=== PATIENT | male | born 1975 | race Caucasian/White ===

== ENCOUNTER 2017-12-01 05:33 | Inpatient (IN) | payer MEDICARE ==
[~2017-12-01] VITALS: Ht 170.2 cm; Wt 88.5 kg
[2017-12-01] MEDS ORDERED: ACETAMINOPHEN 1000 MG/100 ML IV STA (05:41)
[2017-12-01] MEDS ORDERED: SODIUM CHLORIDE 0.9% 1000ML 1,000 ML IV ONE (05:45)
[2017-12-01] MEDS ORDERED: CEFTRIAXONE SOD 1 GM VIAL IV ONE (05:45)
[2017-12-01] MEDS ORDERED: ALBUTEROL SULF 0.083% NEB SOLN 3 ML NEB NEB STA (05:55)
[2017-12-01] MEDS ORDERED: IPRATROPIUM BROMIDE 0.02% 2.5 ML NEB NEB ONE (06:00)
[2017-12-01 06:06] LABS: BASOPHILS # (AUTO) 0.1 (0.0-0.1); BASOPHILS % 0.4 % (0.0-1.0); EOSINOPHILS % 0.1 % (0.0-6.0); HEMATOCRIT 38.6 % (38.2-49.6); LYMPHOCYTES # (AUTO) 0.6 (1.0-3.2); LYMPHOCYTES % 3.2 % (18.0-39.1); MEAN CORPUSCULAR HEMOGLOBIN 30.4 pg (28-32); MEAN CORPUSCULAR HGB CONC 36.3 g/dL (31-35); MEAN CORPUSCULAR VOLUME 83.7 fL (81-99); MONOCYTES # (AUTO) 1.5 (0.2-0.8); NEUTROPHILS # (AUTO) 16.4 (2.1-6.9); NEUTROPHILS % 87.6 % (38.7-80.0); PLATELET COUNT 265 x10e3/uL (140-360); RED BLOOD COUNT 4.61 x10e6/uL (4.3-5.7); RED CELL DISTRIBUTION WIDTH 12.3 % (11.7-14.4)
[2017-12-01 06:17] LABS: ALANINE AMINOTRANSFERASE 80 IU/L (0-55); ALBUMIN 2.5 g/dL (3.5-5.0); ALBUMIN/GLOBULIN RATIO 0.5 (0.8-2.0); ALKALINE PHOSPHATASE 177 IU/L (40-150); ANION GAP 16.4 mmol/L (8-16); BLOOD UREA NITROGEN 13 mg/dL (7-26); BUN/CREATININE RATIO 13 (6-25); CALCIUM 9.9 mg/dL (8.4-10.2); CARBON DIOXIDE 24 mmol/L (22-29); CHLORIDE 93 mmol/L (98-107); CREATINE KINASE 22 IU/L (30-200); CREATININE, SERUM 0.98 mg/dL (0.72-1.25); EST GLOMERULAR FILTRATION RATE > 60 ML/MIN (60-); GLUCOSE 165 mg/dL (74-118); POTASSIUM 3.4 mmol/L (3.5-5.1); SODIUM 130 mmol/L (136-145)
[2017-12-01 06:30] LABS: INFLUENZAE A&B ANTIGEN (RAPID) NEGATIVE (NEGATIVE); STREPTOCOCCUS GRP A ANTIGEN POSITIVE (NEGATIVE)
--- NOTE | 2017-12-01 06:46 | Diagnostic Imaging Report ---
EXAMINATION: CHEST SINGLE (PORTABLE) INDICATION: Cough, fever COMPARISON: None FINDINGS: TUBES and LINES: None. LUNGS: Lungs are well inflated. Left lower lobe airspace opacity. PLEURA: Trace of left pleural effusion. HEART AND MEDIASTINUM: The cardiomediastinal silhouette is unremarkable. BONES AND SOFT TISSUES: No acute osseous lesion. Soft tissues are unremarkable. UPPER ABDOMEN: No free air under the diaphragm. IMPRESSION: Findings are compatible with left lower lobe pneumonia with parapneumonic effusion Signed by: Dr. Farhad Jeffery M.D. on 12/01/2017 6:43 AM
--- NOTE | 2017-12-01 06:50 | Diagnostic Imaging Report ---
EXAM: CT Chest WITHOUT contrast 12/01/2017 6:17 AM INDICATION: Cough. COMPARISON: None TECHNIQUE: Chest was scanned utilizing a multidetector helical scanner from the lung apex through the level of the adrenal glands without administration of IV contrast. Absence of intravenous contrast decreases sensitivity for detection of lymphadenopathy and vascular pathology. Coronal and sagittal reformations were obtained. Routine protocol was performed. IV CONTRAST: None RADIATION DOSE: Total DLP: 504 mGy*cm Estimated effective dose: (DLP x 0.014 x size factor) mSv COMPLICATIONS: None FINDINGS: LINES/ TUBES: None. LUNGS AND AIRWAYS: Near complete opacification of the left lower lobe with confluent airspace opacity and air bronchogram. Airways are normal. PLEURA: Trace of left pleural effusion along the major fissure HEART AND MEDIASTINUM: The thyroid gland is normal. No mediastinal, hilar or axillary lymphadenopathy. The heart is normal in size.. There is no pericardial effusion. UPPER ABDOMEN: Limited non-contrast views of the upper abdomen show no abnormality. BONES: The visualized bony thorax is within normal limits. SOFT TISSUES: Unremarkable. IMPRESSION: Findings are compatible with left lower lobe pneumonia and trace of left parapneumonic effusion along the major fissure Signed by: Dr. Farhad Jeffery M.D. on 12/01/2017 6:47 AM
[2017-12-01] MEDS ORDERED: AZITHROMYCIN 500MG/SOD CHL 0.9% 250ML BAG IV SCH (07:00)
[2017-12-01] MEDS ORDERED: ACETAMINOPHEN 325 MG TAB PO PRN (07:00)
[2017-12-01] MEDS ORDERED: CEFTRIAXONE SOD 1 GM VIAL IV SCH (07:30)
[2017-12-01] MEDS: SODIUM CHLORIDE 0.9% 1000ML 1,000 ML IV SCH ×3 (07:46→23:41)
[2017-12-01] MEDS: IPRATROPIUM BROMIDE 0.02% 2.5 ML NEB NEB SCH ×4 (08:00→23:30)
[2017-12-01] MEDS: ALBUTEROL SULF 0.083% NEB SOLN 3 ML NEB NEB SCH ×5 (08:00→23:30)
[2017-12-01] MEDS: AZITHROMYCIN 500MG/NS 250 ML 250 ML IV SCH (08:30)
[2017-12-01 09:58] LABS: CLARITY,URINE SL CLOUDY (CLEAR); COLOR,URINE ORANGE (YELLOW); PROTEIN,URINE DIPSTICK TRACE (NEGATIVE)
[2017-12-01 09:59] LABS: BILIRUBIN,URINE NEGATIVE (NEGATIVE); KETONES,URINE NEGATIVE (NEGATIVE); LEUKOCYTE ESTERASE ,URINE NEGATIVE (NEGATIVE); NITRITE,URINE NEGATIVE (NEGATIVE); URINE UROBILINOGEN 0.2 mg/dL (0.2 - 1)
[2017-12-01 10:21] LABS: EPITHELIAL CELLS,URINE FEW /LPF
[2017-12-01 12:00] VITALS: BP 102/56
[2017-12-01 15:54] LABS: CREATINE KINASE 21 IU/L (30-200)
[2017-12-01 16:00] VITALS: BP 115/65
[2017-12-01 20:00] VITALS: BP 129/66
[2017-12-01] MEDS ORDERED: BENZONATATE 100 MG CAP PO PRN (20:00)
[2017-12-01] MEDS ORDERED: GUAIFENESIN 200 MG/10 ML UDC PO PRN (20:00)
[2017-12-01 23:38] LABS: CREATINE KINASE 21 IU/L (30-200)
[2017-12-02] VITALS (7 sets, daily range): BP systolic 106–137; BP diastolic 67–83
[2017-12-02] MEDS: ALBUTEROL SULF 0.083% NEB SOLN 3 ML NEB NEB SCH ×5 (03:00→19:20)
[2017-12-02 06:12] LABS: ALANINE AMINOTRANSFERASE 66 IU/L (0-55); ALBUMIN 2.2 g/dL (3.5-5.0); ALBUMIN/GLOBULIN RATIO 0.6 (0.8-2.0); ALKALINE PHOSPHATASE 146 IU/L (40-150); ANION GAP 15.4 mmol/L (8-16); BLOOD UREA NITROGEN 15 mg/dL (7-26); BUN/CREATININE RATIO 19 (6-25); CALCIUM 8.9 mg/dL (8.4-10.2); CARBON DIOXIDE 22 mmol/L (22-29); CHLORIDE 103 mmol/L (98-107); CREATININE, SERUM 0.78 mg/dL (0.72-1.25); EST GLOMERULAR FILTRATION RATE > 60 ML/MIN (60-); GLUCOSE 135 mg/dL (74-118); POTASSIUM 3.4 mmol/L (3.5-5.1); SODIUM 137 mmol/L (136-145)
[2017-12-02 06:40] LABS: BASOPHILS % 0.3 % (0.0-1.0); EOSINOPHILS # (AUTO) 0.3 (0.0-0.4); EOSINOPHILS % 3.3 % (0.0-6.0); HEMATOCRIT 33.9 % (38.2-49.6); HEMOGLOBIN 12.1 g/dL (14.0-18.0); LYMPHOCYTES # (AUTO) 1.1 (1.0-3.2); LYMPHOCYTES % 14.5 % (18.0-39.1); MEAN CORPUSCULAR HEMOGLOBIN 30.3 pg (28-32); MEAN CORPUSCULAR HGB CONC 35.7 g/dL (31-35); MONOCYTES # (AUTO) 1.1 (0.2-0.8); MONOCYTES % 14.4 % (4.4-11.3); NEUTROPHILS # (AUTO) 5.1 (2.1-6.9); NEUTROPHILS % 66.2 % (38.7-80.0); PLATELET COUNT 263 x10e3/uL (140-360); RED BLOOD COUNT 3.99 x10e6/uL (4.3-5.7); RED CELL DISTRIBUTION WIDTH 12.7 % (11.7-14.4)
[2017-12-02] MEDS: SODIUM CHLORIDE 0.9% 1000ML 1,000 ML IV SCH ×3 (06:41→22:05)
[2017-12-02] MEDS: IPRATROPIUM BROMIDE 0.02% 2.5 ML NEB NEB SCH ×3 (07:40→19:20)
[2017-12-02] MEDS: AZITHROMYCIN 500MG/NS 250 ML 250 ML IV SCH (08:30)
[2017-12-02] MEDS: CEFTRIAXONE SOD 1 GM VIAL IV SCH (10:02)
[2017-12-03] VITALS (7 sets, daily range): BP systolic 114–133; BP diastolic 63–86
[2017-12-03] MEDS: IPRATROPIUM BROMIDE 0.02% 2.5 ML NEB NEB SCH ×3 (00:30→19:15)
[2017-12-03] MEDS: ALBUTEROL SULF 0.083% NEB SOLN 3 ML NEB NEB SCH ×5 (00:30→19:15)
[2017-12-03 05:41] LABS: BASOPHILS % 0.6 % (0.0-1.0); EOSINOPHILS # (AUTO) 0.3 (0.0-0.4); EOSINOPHILS % 4.9 % (0.0-6.0); HEMATOCRIT 32.7 % (38.2-49.6); HEMOGLOBIN 11.3 g/dL (14.0-18.0); LYMPHOCYTES # (AUTO) 1.7 (1.0-3.2); LYMPHOCYTES % 25.7 % (18.0-39.1); MEAN CORPUSCULAR HEMOGLOBIN 30.1 pg (28-32); MEAN CORPUSCULAR HGB CONC 34.6 g/dL (31-35); MEAN CORPUSCULAR VOLUME 87.2 fL (81-99); MONOCYTES # (AUTO) 0.8 (0.2-0.8); MONOCYTES % 12.5 % (4.4-11.3); NEUTROPHILS # (AUTO) 3.6 (2.1-6.9); NEUTROPHILS % 54.9 % (38.7-80.0); PLATELET COUNT 337 x10e3/uL (140-360); RED BLOOD COUNT 3.75 x10e6/uL (4.3-5.7); RED CELL DISTRIBUTION WIDTH 13.3 % (11.7-14.4)
[2017-12-03 05:57] LABS: BLOOD UREA NITROGEN 16 mg/dL (7-26); BUN/CREATININE RATIO 20 (6-25); CARBON DIOXIDE 21 mmol/L (22-29); CHLORIDE 107 mmol/L (98-107); CREATININE, SERUM 0.82 mg/dL (0.72-1.25); EST GLOMERULAR FILTRATION RATE > 60 ML/MIN (60-); GLUCOSE 120 mg/dL (74-118); SODIUM 138 mmol/L (136-145)
[2017-12-03] MEDS: SODIUM CHLORIDE 0.9% 1000ML 1,000 ML IV SCH ×3 (06:41→23:50)
[2017-12-03] MEDS: AZITHROMYCIN 500MG/NS 250 ML 250 ML IV SCH (09:53)
[2017-12-03] MEDS: CEFTRIAXONE SOD 1 GM VIAL IV SCH (09:53)
[2017-12-04] VITALS (7 sets, daily range): BP systolic 121–150; BP diastolic 65–89
[2017-12-04] MEDS: ALBUTEROL SULF 0.083% NEB SOLN 3 ML NEB NEB SCH ×6 (01:10→14:15)
[2017-12-04] MEDS: IPRATROPIUM BROMIDE 0.02% 2.5 ML NEB NEB SCH ×4 (07:15→19:00)
--- NOTE | 2017-12-04 08:28 | Diagnostic Imaging Report ---
EXAMINATION: CHEST 2 VIEWS INDICATION: \S\PNEUMONIA; COUGH \[id number] \S\[id number] COMPARISON: Chest radiograph and CT 12/01/2017 FINDINGS: PA and lateral views TUBES and LINES: None. LUNGS: Lungs are well inflated. Stable left lower lobe pneumonia. Right lung is clear. PLEURA: Trace left pleural effusion. No right pleural effusion. No pneumothorax. HEART AND MEDIASTINUM: The cardiomediastinal silhouette is unremarkable. BONES AND SOFT TISSUES: No acute osseous lesion. Soft tissues are unremarkable. UPPER ABDOMEN: No free air under the diaphragm. IMPRESSION: Stable left lower lobe consolidation compatible with pneumonia. Signed by: DR. Wes Ramos MD on 12/04/2017 8:24 AM
[2017-12-04] MEDS: SODIUM CHLORIDE 0.9% 1000ML 1,000 ML IV SCH (08:31)
[2017-12-04] MEDS: AZITHROMYCIN 500MG/NS 250 ML 250 ML IV SCH (08:31)
[2017-12-04] MEDS: CEFTRIAXONE SOD 1 GM VIAL IV SCH (08:31)
[2017-12-05] VITALS: BP 134/83
--- NOTE | 2017-12-05 00:30 | Discharge Summary ---
STEPH BURROUGHS (00:01) CHRISTOFER FERNANDEZ MD Job#: [id number] [facility]OE[facility]
[2017-12-05] MEDS: IPRATROPIUM BROMIDE 0.02% 2.5 ML NEB NEB SCH ×2 (01:00→08:00)
[2017-12-05] MEDS: ALBUTEROL SULF 0.083% NEB SOLN 3 ML NEB NEB SCH ×2 (03:00→08:00)
[2017-12-05 04:00] VITALS: BP 129/80
--- NOTE | 2017-12-05 07:34 | Discharge Summary ---
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 Patient was diagnosed with pneumonia, started on IV antibiotic therapy with ceftriaxone and Zithromax. Patient is doing well. Afebrile. Blood cultures are negative. He is going home tomorrow. PHYSICAL EXAM VITAL SIGNS: Blood pressure 128/84, temperature 97.1, heart rate 79 per minute, respiratory rate is 20 per minute, oxygen saturation 98%. HEART: Regular rhythm. No murmur. No extra sounds. LUNGS: Clear bilaterally. ABDOMEN: Soft. EXTREMITIES: No evidence of cyanosis, edema or trauma. LABORATORY DATA: On the blood work we have BMP; sodium 138, potassium 4.0, chloride 107, CO2 of 21, BUN 16, creatinine 0.82, glucose 120. On the CBC; white blood count 6.57, hemoglobin 11.3, hematocrit 32.7, platelet count 637,000. AST 49, ALT 66, total bilirubin 0.8, and alkaline phosphatase 146. FINAL IMPRESSION 1. Lobar pneumonia. 2. Streptococcal pharyngitis. PLAN OF TREATMENT: The patient is going to be discharged on Z-PEMA and Ceftin 500 mg p.o. twice a day for 10 days. Follow up with Dr. Wren in a week. Job#: [id number] [place]
[2017-12-05 08:30] VITALS: BP 142/83
[2017-12-05] MEDS: CEFTRIAXONE SOD 1 GM VIAL IV SCH (09:00)
[2017-12-05] MEDS: AZITHROMYCIN 500MG/NS 250 ML 250 ML IV SCH (09:00)
[2017-12-05] MEDS ORDERED: CEFUROXIME500 MG PO (10:10)
[2017-12-05] MEDS ORDERED: ZITHROMAX250 MG PO (10:12)
--- OUTSIDE RECORDS SUMMARY | 2017-12-14 09:41 | XMS REPORT ---
Author Author [facility] Address Unknown Phone Unavailable Care Team Providers Care Prop Maker Name Role Phone Eliana CHAVEZ Unavailable Unavailable Problems This patient has no known problems. Allergies, Adverse Reactions, Alerts This patient has no known allergies or adverse reactions. Medications This patient has no known medications. Results Test Description Test Time Test Comments Text Results Atomic Results Result Comments CT CHEST WO 2017-12-01 06:45:00 [place] [address] Patient Name: SINDY FLOYD MR #: [id number] : 1975 Age/Sex: 41/M Req #: [id number] [facility] [place] Physician: Ordered by: SINDY CHAVEZ MD Report #: [id number] Location: ER Room/Bed: Procedure: [id number] CT/CT CHEST WO Exam Date: 12/01/17 Exam Time: 625 REPORT STATUS: Signed EXAM: CT Chest WITHOUT contrast 12/01/2017 6:17 AM INDICATION: Cough. COMPARISON: None TECHNIQUE: Chest was scanned utilizing a multidetector helical scanner from the lung apex through the level of the adrenal glands without administration of IV contrast. Absence of intravenous contrast decreases sensitivity for detection of lymphadenopathy and vascular pathology. Coronal and sagittal reformations were obtained. Routine protocol was performed. IV CONTRAST: None RADIATION DOSE: Total DLP: 504 mGy*cm Estimated effective dose: (DLP x 0.014 x size factor) mSv COMPLICATIONS: None FINDINGS: LINES/ TUBES: None. LUNGS AND AIRWAYS: Near complete opacification of the left lower lobe with confluent airspace opacity and air bronchogram. Airways are normal. PLEURA: Trace of left pleural effusion along the major fissure HEART AND MEDIASTINUM: The thyroid gland is normal. No mediastinal, hilar or axillary lymphadenopathy. The heart is normal in size.. There is no pericardial effusion. UPPER ABDOMEN: Limited non-contrast views of the upper abdomen show no abnormality. BONES: The visualized bony thorax is within normal limits. SOFT TISSUES: Unremarkable. IMPRESSION: Findings are compatible with left lower lobe pneumonia and trace of left parapneumonic effusion along the major fissure Signed by: Dr. Farhad Jeffery M.D. on 12/01/2017 6:47 AM Dictated By: FARHAD BARROW MD 6 Transcribed By: AWILDA on 12/01/17646 COPY TO: SINDY CHAVEZ MD CHEST SINGLE (PORTABLE) 2017-12-01 06:23:00 [place] [address] Patient Name: SINDY FLOYD MR #: [id number] : 1975 Age/Sex: 41/M Req #: [id number] Adm Physician: Ordered by: SINDY CHAVEZ MD Report #: [id number] Location: ER Room/Bed: Procedure: [id number] DX/CHEST SINGLE (PORTABLE) Exam Date: 12/01/17 Exam Time: 0551 REPORT STATUS: Signed EXAMINATION: CHEST SINGLE (PORTABLE) INDICATION: Cough, fever COMPARISON: None FINDINGS: TUBES and LINES: None. LUNGS: Lungs are well inflated. Left lower lobe airspace opacity. PLEURA: Trace of left pleural effusion. HEART AND MEDIASTINUM: The cardiomediastinal silhouette is unremarkable. BONES AND SOFT TISSUES: No acute osseous lesion. Soft tissues are unremarkable. UPPER ABDOMEN: No free air under the diaphragm. IMPRESSION: Findings are compatible with left lower lobe pneumonia with parapneumonic effusion Signed by: Dr. Farhad Jeffery M.D. on 12/01/2017 6:43 AM Dictated By: FARHAD BARROW MD 2 Transcribed By: AWILDA on 12/01/17642 COPY TO: SINDY CHAVEZ MD
--- NOTE | 2018-02-15 01:44 | Discharge Summary ---
CHIEF COMPLAINT: Pneumonia, strep pharyngitis. FINAL DIAGNOSES 1. Pneumonia. 2. Sepsis. 3. Major depressive disorder. 4. Anxiety. DISPOSITION: Home. HOSPITAL COURSE: A 41-year-old male, known history of major depressive disorder/anxiety, history of traumatic brain injury 10 years ago, presents to the ER with a 1-week history of sore throat followed by fever, chills, increased congestion and cough. Underwent review and evaluation in the emergency room. Chest was revealing inspiratory crackles. Blood work and x-rays were performed. Findings were showing evidence of pneumonia. Findings of strep throat. He was further cared. The patient was admitted to the facility for continued review and evaluation and management of increased chest congestion, cough, fever, strep throat, community-acquired pneumonia, major depressive disorder, anxiety. We began IV antibiotic coverage, nebulizer treatments. From the emergency room, patient was placed in the med/surg floor. He was on a regular diet. He was started on respiratory treatments. He was being started on azithromycin and ceftriaxone as well. Labs were showing a potassium of 3.4. Kidney function is stable. Glucose is 135. CBC: Normal hemoglobin, normal white count. Acetaminophen was being given for fever management and as his stay progressed, he was feeling much better, responding to treatment. Followup potassium was 4. Respiratory treatments continued. X-rays of chest were followed. Continued positive progression and the patient was ready to be discharged on 12/05/2017 in stable condition. IVs were removed. With discharge, patient will continue on a regular diet. No equipment or supplies were necessary. No drains or [place] was needed. Activity level as directed by myself. Patient was given a prescription for Ceftin 500 mg tablets one q.12 h. for 10 days, azithromycin 250 one tablet p.o. daily for five days. Following back up with me in my office within 1 week. Dictated By: NAVEEN Yu. Job#: [id number] DRAYA
== END 2017-12-05 10:50 | disposition home or self-care (01) | DRG 194 ==
LOC: ER 05:33 → ERHOLD 06:55 → MED/SURG3 12:28
DX: J15.9 Unspecified bacterial pneumonia (principal); E87.1 Hypo-osmolality and hyponatremia; J02.0 Streptococcal pharyngitis; F32.9 Major depressive disorder, single episode, unspecified; F41.9 Anxiety disorder, unspecified; Z87.820 Personal history of traumatic brain injury; F17.210 Nicotine dependence, cigarettes, uncomplicated; Z82.49 Family history of ischemic heart disease and other diseases of the circulatory system; E87.6 Hypokalemia; E87.8 Other disorders of electrolyte and fluid balance, not elsewhere classified
CPT/HCPCS: 36415; 71045; 71046; 71250; 80048; 80053; 81001; 82550; 82553; 83518; 83605; 84484; 85025; 87040; 87400; 94640; 96374; 99284; J0456; J0696; J7030